=== PATIENT | female | born 1960 | race Caucasian/White ===

== ENCOUNTER 2021-07-03 10:35 | Outpatient (CLI) | payer BC, MEDICARE | END 2021-07-03 10:36 | disposition home or self-care (01) | LOC: CSHWCC 10:35 | PROVIDERS: ATTEND Nurse Practitioner Family | DX: L98.492 Non-pressure chronic ulcer of skin of other sites with fat layer exposed (principal); F32.9 Major depressive disorder, single episode, unspecified; G89.29 Other chronic pain; J45.909 Unspecified asthma, uncomplicated; K50.113 Crohn's disease of large intestine with fistula; K60.0 Acute anal fissure; L26 Exfoliative dermatitis; M06.9 Rheumatoid arthritis, unspecified | CPT/HCPCS: 99213; G0463 ==